=== PATIENT | female | born 2000 | race Hispanic/Latino ===

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

== ENCOUNTER 2025-01-12 10:45 | Emergency (ER) | payer BC, MEDICAID ==
[~2025-01-12] VITALS: Ht 149.9 cm; Wt 68.0 kg
--- NOTE | 2025-01-12 11:13 | ERN ---
General Chief Complaint: Vaginal Problems/Bleeding Stated Complaint: VAGINAL BLEEDING Time Seen by MD: 10:47 History of Present Illness Initial Comments This 24-year-old female presented to ED with complaints of excessive menstrual bleeding and headache. Patient says her menstrual period started 8 days back and yesterday night while cleaning she found some slimy clots and want to make s ure it is not miscarriage. Patient's last menstrual period was during end of October. Patient says she had 1 miscarriage in May this year. Patient is anemic, denies chest pain, shortness of breath, palpitation. Allergies: Coded Allergies: No Known Drug Allergies (Unverified Allergy, Unknown, 01/16/19) Past Medical History Past Medical History: Anemia Past Surgical History: Constitutional: (+) weakness; (-) chills, (-) diaphoresis, (-) fever, (-) malaise, (-) other documentation Respiratory: (-) cough, (-) orthopnea, (-) short of breath, (-) stridor, (-) wheezing, (-) other documentation Cardiovascular: (-) chest pain, (-) edema, (-) palpitations, (-) syncope, (-) dyspnea on exertion, (-) other documentation Gastrointestinal/Abdominal: (-) nausea, (-) vomiting, (-) diarrhea, (-) abdominal pain, (-) abdominal distention, (-) constipation, (-) rectal bleeding, (-) dark stool/melena, (-) other documentation Genitourinary: (+) vaginal discharge, (+) vaginal bleeding; (-) dysuria, (-) frequency, (-) hematuria, (-) pain, (-) other documentation Physical Exam General Appearance: (+) no apparent distress Orientation: (+) alert, (+) oriented x 3; (-) disoriented, (-) other documentation Respiratory: (+) lungs clear, (+) well ventilated; (-) chest non-tender, (-) decreased breath sounds, (-) retractions, (-) abnormal breath sound, (-) crackles, (-) plerual rub, (-) rales, (-) rhonchi, (- ) stridor, (-) wheezing, (-) other documentation Heart: (+) tachycardia; (-) regular, (-) no gallop, (-) murmur, (-) irregular, (-) bradycardia, (-) systolic murmur, (-) diastolic murmur, (-) extra beats, (-) friction rub, (-) gallop/S3, (-) gallop/S4, (-) other documentation Results Laboratory and Microbiology Lab and Micro Result Laboratory Tests Test 01/12/25 11:05 White Blood Count 6.7 K/uL (4.8-10.8) Red Blood Count 3.17 MIL/uL (4.00-5.50) L Hemoglobin 7.4 g/dL (12.0-16.0) L Hematocrit 24.6 % (36-48) L Mean Corpuscular Volume 77.6 fL (79-99) L Mean Corpuscular Hemoglobin 23.3 pg (27.0-33.0) L Mean Corpuscular Hemoglobin Concent 30.1 g/dL (32.0-36.0) L Red Cell Distribution Width 18.1 % (11.0-15.5) H Platelet Count 518 K/uL (130-400) H Mean Platelet Volume 8.8 fL (7.5-10.5) Immature Granulocyte % (Auto) 0.6 % (0-1) Neutrophils (%) (Auto) 78.5 % (40.0-77.0) H Lymphocytes (%) (Auto) 12.8 % (21.0-51.0) L Monocytes (%) (Auto) 6.4 % (3.0-13.0) Eosinophils (%) (Auto) 1.3 % (0.0-8.0) Basophils (%) (Auto) 0.4 % (0.0-5.0) Neutrophils # (Auto) 5.3 K/uL (1.8-7.7) Lymphocytes # (Auto) 0.9 K/uL (1.0-4.8) L Monocytes # (Auto) 0.4 K/uL (0.1-1.0) Eosinophils # (Auto) 0.09 K/uL (0.00-0.70) Basophils # (Auto) 0.03 K/uL (0.00-0.20) Absolute Immature Granulocyte (auto 0.04 K/uL (0-1) Nucleated Red Blood Cells 0.0 % (0.0-0.19) Red Blood Cell Morphology See comments Sodium Level 137 mmol/L (136-145) Potassium Level 3.9 mmol/L (3.5-5.1) Chloride Level 101 mmol/L (101-111) Carbon Dioxide Level 26 mmol/L (21-32) Blood Urea Nitrogen 10 mg/dL (7-18) Creatinine 0.6 mg/dL (0.5-1.0) Glomerular Filtration Rate Calc 128 mL/min (>90) Random Glucose 112 mg/dL (70-105) H Total Calcium 8.9 mg/dL (8.5-10.1) Serum Test, Qualitative POSITIVE (NEGATIVE) H EKG/XRAY/US/CT/MRI Ultrasound Comment [place] [id number] [id number] IMAGING REPORT Signed PATIENT: LUCAS BLANCO MR#: [id number] : 2000 SEX: F AGE: 24 LOCATION: [facility] ORDER STATUS: [facility] REPORT#: [id number] SERVICE [id number] REASON: vag bleed ORDERING PHYSICIAN: ABEL SEGURA MD PROCEDURE: OB <14 - US OB <14 WEEKS EXAM: US Obstetrical, Complete <14 weeks CLINICAL HISTORY: vag bleed TECHNIQUE: Transabdominal imaging of the maternal pelvis and a <14 week gestation with image documentation. COMPARISON: None provided. FINDINGS: Uterus measures 11.5 x 4 x 6.2 cm. The uterine contour is normal. Myometrial echotexture is within normal limits. The endometrium is 14 mm in thickness and appears heterogeneous in echotexture with mildly raised vascularity. The cervix is normal in size and echotexture. Right ovary measures 3 x 2.4 x 2.6 cm, appears normal in size and shape, with normal stromal echotexture and no focal lesion seen. Left ovary measures 2 x 1.2 x 2 cm, normal in size, shape, and echotexture, with no focal lesion. No adnexal masses or cysts are identified. No free fluid is seen in the cul-de-sac. No intrauterine gestational sac or evidence of intrauterine is seen at this time. The urinary bladder is normal in contour and wall thickness, with no mass or calculus. No pelvic lymphadenopathy is seen. Bowel loops appear unremarkable in the visualized field. IMPRESSION: 1. No definite intrauterine identified. Recommend follow-up ultrasound imaging and correlation with quantitative beta-hCG. 2. Thickened, heterogeneous endometrium with mildly increased vascularity, measuring 14 mm. 3. Normal-appearing ovaries bilaterally. 4. No adnexal masses, free fluid, or other pelvic abnormalities. /[place] DICTATED BY: KAMRON MADDOX Jr., MD DATE: 01/12/25 152 ELECTRONICALLY SIGNED BY: KAMRON MADDOX Jr., MD DATE: 01/12/25 152 [facility] MDM: Differential diagnosis: Heavy menstrual period/miscarriage Rationale: Tests considered and ordered secondary to shared decision making include: Previous outside records reviewed: Old ER visits. Risk of complication and/or morbidity or mortality of patient management: None Medications-Per medication reconciliation Need for hospitalization: Patient does not meet criteria for hospitalization. Need for emergency major/minor surgery: No There are no social concerns with this patient. Prescription drug management Prescriptions will include symptomatic care Patient's prior external medical records from other ER visits were reviewed by me as indicated. Prior testing and results from previous visits were reviewed. Prior tests were taken into account with medical decision making and resource utilization, independent historian/historians were used to obtain complete medical history. I independently interpreted the test that were performed, results were reviewed by me and considered findings on radiology if ordered. Medical management and examination interpretation discussions were had by me with other qualified healthcare professionals as indicated for the patient's care. ED Course Orders Procedure Category Date Status Time Cbc With Differential LAB 01/12/25 Complete 10:55 Basic Metabolic Panel LAB 01/12/25 Complete 10:55 Testing, LAB 01/12/25 Complete Serum Hcg 10:55 Us Ob <14 Weeks US 01/12/25 Resulted 12:15 Hcg,Quantitative LAB 01/12/25 In Process 13:29 Vital Signs Date Time Temp Pulse Resp B/P (MAP) Pulse Ox O2 Delivery O2 Flow Rate FiO2 01/12/25 13:38 99.3 118 16 132/83 100 Room Air* 0 21 01/12/25 10:46 99.3 118 16 132/83 100 Room Air HEART Score Response (Comments) Value History: Low suspicion (0) 0 Age: < 45yrs (0) 0 Total 0 DX & DISP Disposition: Discharge Departure Impression: Primary Impression: Miscarriage, threatened, early Condition: Stable Scripts Acetaminophen (Tylenol) 500 Mg Tab 1 TAB PO Q6HPRN PRN for pain or fever for 5 Days, #30 TAB 0 Refills Prov: ABEL SEGURA MD 01/12/25 Additional Instructions: FOLLOW-UP WITH PRIMARY CARE PROVIDER IN 1 TO 2 DAYS. TAKE MEDICATIONS DIRECTED HERE IN THE EMERGENCY ROOM. OKAY TO CONTINUE HOME MEDICATIONS UNLESS OTHERWISE DISCUSSED DURING YOUR VISIT IN THE EMERGENCY ROOM TODAY. RETURN TO YOUR NEAREST EMERGENCY ROOM IF SYMPTOMS WORSEN OR IF THERE IS NO IMPROVEMENT. CALL 911 IF YOU NEED IMMEDIATE ASSISTANCE. TAKE TYLENOL [id number] NEEDED AND IF NO CONTRAINDICATIONS ARE PRESENT. INCREASE ORAL HYDRATION. A WOUND CULTURE OR URINE CULTURE WAS ORDERED HERE IN THE EMERGENCY ROOM DEPARTMENT PLEASE FOLLOW-UP WITH PRIMARY CARE PROVIDER AND ADVISE THEM TO GET REPORTS FROM OUR FACILITY. IF YOU HAD ANY JACKELIN WRAP/SPLINTS THAT WERE APPLIED HERE, PLEASE DO NOT REMOVE THEM UNTIL YOU SEE YOUR PRIMARY CARE OR SPECIALTY. Referrals: Referrals: SELF,REFERRAL (PCP) ARSEN COOPER MD Time of Disposition: 14:30 ERNI ANNE MD Jan 12, 2025 11:13 ABEL SEGURA MD Jan 12, 2025 14:31
[2025-01-12 11:32] LABS: IMMATURE GRANULOCYTE ABSOLUTE 0.04 K/uL (0-1); NUCLEATED RED BLOOD CELLS 0.0 % (0.0-0.19); PLATELET COUNT (AUTO) 518 K/uL (130-400); RED BLOOD CELL COUNT(AUTO) 3.17 MIL/uL (4.00-5.50); RED CELL DISTRIBUTION WIDTH 18.1 % (11.0-15.5); WHITE BLOOD COUNT (AUTO) 6.7 K/uL (4.8-10.8)
[2025-01-12 11:46] LABS: CREATININE 0.6 mg/dL (0.5-1.0); GLOMERULAR FILTR. RATE CALC 128.0 mL/min (>90); GLUCOSE,RANDOM 112.0 mg/dL (70-105); SODIUM SERUM 137.0 mmol/L (136-145); UREA NITROGEN, BLOOD 10.0 mg/dL (7-18)
--- NOTE | 2025-01-12 14:27 | HMCIMG ---
EXAM: US Obstetrical, Complete <14 weeks CLINICAL HISTORY: vag bleed TECHNIQUE: Transabdominal imaging of the maternal pelvis and a <14 week gestation with image documentation. COMPARISON: None provided. FINDINGS: Uterus measures 11.5 x 4 x 6.2 cm. The uterine contour is normal. Myometrial echotexture is within normal limits. The endometrium is 14 mm in thickness and appears heterogeneous in echotexture with mildly raised vascularity. The cervix is normal in size and echotexture. Right ovary measures 3 x 2.4 x 2.6 cm, appears normal in size and shape, with normal stromal echotexture and no focal lesion seen. Left ovary measures 2 x 1.2 x 2 cm, normal in size, shape, and echotexture, with no focal lesion. No adnexal masses or cysts are identified. No free fluid is seen in the cul-de-sac. No intrauterine gestational sac or evidence of intrauterine is seen at this time. The urinary bladder is normal in contour and wall thickness, with no mass or calculus. No pelvic lymphadenopathy is seen. Bowel loops appear unremarkable in the visualized field. IMPRESSION: 1. No definite intrauterine identified. Recommend follow-up ultrasound imaging and correlation with quantitative beta-hCG. 2. Thickened, heterogeneous endometrium with mildly increased vascularity, measuring 14 mm. 3. Normal-appearing ovaries bilaterally. 4. No adnexal masses, free fluid, or other pelvic abnormalities. /[place]
[2025-01-12] MEDS ORDERED: ACET-66 PO (14:31)
[2025-01-12 14:36] VITALS: BP 127/74; PULSE 92; RESP 16; TEMP 98.9; O2SAT 100
== END 2025-01-12 14:53 | disposition home or self-care (01) ==
LOC: EDH 10:45
DX: O03.9 Complete or unspecified spontaneous abortion without complication (principal); O26.891 Other specified pregnancy related conditions, first trimester; R10.2 Pelvic and perineal pain
CPT/HCPCS: 36415; 76801; 80048; 84702; 84703; 85025; 99284